=== PATIENT | male | born 1975 | race Asian ===

== ENCOUNTER 2022-06-23 16:46 | Outpatient (CLI) | payer BC, OTHER | END 2022-06-23 16:47 | disposition home or self-care (01) | LOC: CSHRAD 16:46 | PROVIDERS: ATTEND Family Medicine | DX: M54.2 Cervicalgia (principal); M47.812 Spondylosis without myelopathy or radiculopathy, cervical region | CPT/HCPCS: 72040 ==

== ENCOUNTER 2025-02-04 22:18 | Emergency (ER) | payer OTHER ==
[2025-02-04 23:18] LABS: #Basophils Less than 0.03 10x3/uL (0.0-0.2); #Eosinophils 0.13 10x3/uL (0.0-0.5); #Monocytes 0.38 10x3/uL (0.0-1.1); #Neutrophils 3.10 10x3/uL (1.5-8.4); %Basophils 0.4 % (0.0-2.0); %Eosinophils 2.4 % (0.0-6.0); %Lymphocytes 32.7 % (18.0-47.0); %Monocytes 7.0 % (0.0-10.0); %Neutrophils 57.3 % (40.0-75.0); Hematocrit 46.2 % (38.8-50.0); Hemoglobin 15.3 g/dL (13.5-17.5); Mean Corpuscular Hemoglobin 28.2 pg (27.0-33.0); Mean Corpuscular Volume 85.1 fL (81.2-95.1); Platelet Count 266 10x3/uL (150-450); Red Blood Cell (RBC) Count 5.43 10x6/uL (4.32-5.72); White Blood Cell (WBC) Count 5.41 10x3/uL (3.5-10.5)
[2025-02-04 23:33] LABS: ALT (SGPT) 14 U/L (Less than 45); AST (SGOT) 15 U/L (11-34); Albumin 4.2 g/dL (3.1-4.5); Alkaline Phosphatase 55 U/L (40-110); Anion Gap 13 mmol/L (10-20); BUN (Urea Nitrogen) 11 mg/dL (8.4-25.7); Bilirubin, Total 0.3 mg/dL (0.3-1.2); Calc. Creatinine Clearance 0 mL/min (70-130); Calcium 8.6 mg/dL (7.8-10.44); Carbon Dioxide 24 mmol/L (22-29); Chloride 108 mmol/L (98-107); Globulin 2.9 g/dL (2.4-3.5); Glucose 182 mg/dL (70-105); Potassium 3.3 mmol/L (3.5-5.1); Sodium 142 mmol/L (136-145)
== END 2025-02-05 00:35 | disposition home or self-care (01) ==
LOC: CSHERS 22:18
DX: R55 Syncope and collapse (principal); E87.6 Hypokalemia; R29.700 NIHSS score 0; I10 Essential (primary) hypertension
CPT/HCPCS: 80053; 85025; 93005; 96360